=== PATIENT | female | born 1945 | race Hispanic/Latino ===

== ENCOUNTER → 2020-11-12 | Day surgery (SDC) | payer SELFPAY ==
[~2020-11-12] MED LIST: ABILIFY2 MG PO; CLONAZEPAM0.5 MG PO; CRESTOR10 MG PO; FENTANYL CITRATE/PF 100MCG/2 ML INJ ONE; LEVOTHYROXINE75 MCG PO; LEXAPRO20 MG PO; MIDAZOLAM HCL 2 MG/2 ML VIAL ONE; OLMESARTAN-HCT1 EAC1 PO; OR PHACO EYE KIT ONE; PREOP PHACO EYE KIT ONE; [UNRECOGNIZED DRUG - OTHER] PO; [UNRECOGNIZED DRUG - OTHER] PO
[2020-11-12 12:35] VITALS: BP 121/54
== END | disposition home or self-care (01) ==
LOC: OR 09:34
PROVIDERS: ATTEND Ophthalmology
DX: H25.12 Age-related nuclear cataract, left eye (principal); I10 Essential (primary) hypertension; E78.5 Hyperlipidemia, unspecified
CPT/HCPCS: 66984; J2250; J3010